=== PATIENT | female | born 2000 | race Caucasian/White ===

== ENCOUNTER 2021-08-13 19:33 | Emergency (ER) | payer BC, OTHER ==
[~2021-08-13] VITALS: Ht 167.6 cm; Wt 56.7 kg
[2021-08-13] MEDS ORDERED: SODIUM CHLORIDE 0.9% 1000ML 1,000 ML ONE (22:17)
[2021-08-13] MEDS ORDERED: FAMOTIDINE 20 MG/2 ML VIAL IV STA (23:19)
[2021-08-13] MEDS ORDERED: SODIUM CHLORIDE 0.9% 500ML 500 ML ONE (23:19)
[2021-08-13] MEDS ORDERED: ONDANSETRON HCL INJ 2MG/ML 2ML 2 MG/ML VIAL IV STA (23:27)
[2021-08-13] MEDS ORDERED: SODIUM CHLORIDE 0.9% 500ML 500 ML IV ONE (23:30)
[2021-08-13] MEDS ORDERED: SODIUM CHLORIDE 0.9% 1000ML 1,000 ML IV SCH (23:30)
[2021-08-13] MEDS ORDERED: ONDANSETRON ODT4 MG PO (23:35)
[2021-08-13] MEDS ORDERED: FAMOTIDINE20 MG PO (23:36)
[2021-08-13] MEDS ORDERED: ONDANSETRON HCL INJ 2MG/ML 2ML 2 MG/ML VIAL ONE (23:39)
[2021-08-13] MEDS ORDERED: FAMOTIDINE 20 MG/2 ML VIAL IV ONE (23:39)
[2021-08-14 00:07] VITALS: BP 106/56
== END 2021-08-14 00:07 | disposition home or self-care (01) ==
LOC: FSED 22:30
DX: R11.2 Nausea with vomiting, unspecified (principal); A08.4 Viral intestinal infection, unspecified; E86.0 Dehydration; R10.30 Lower abdominal pain, unspecified; R19.7 Diarrhea, unspecified; J45.909 Unspecified asthma, uncomplicated
CPT/HCPCS: 80048; 80076; 81003; 81025; 85025; 99283; J2405; J7030; J7040